=== PATIENT | male | born 1970 | race Asian ===

== ENCOUNTER 2017-12-25 23:08 | Emergency (ER) | payer OTHER ==
[~2017-12-25] VITALS: Ht 170.2 cm; Wt 77.1 kg
[2017-12-26] MEDS ORDERED: CEFUROXIME500 MG PO (01:39)
== END 2017-12-26 01:59 | disposition home or self-care (01) ==
LOC: ER 23:08
DX: S01.02XA Laceration with foreign body of scalp, initial encounter (principal); S01.521A Laceration with foreign body of lip, initial encounter; W01.0XXA Fall on same level from slipping, tripping and stumbling without subsequent striking against object, initial encounter; Y93.02 Activity, running; Y92.89 Other specified places as the place of occurrence of the external cause; Y99.8 Other external cause status

== ENCOUNTER 2018-01-02 08:52 | Emergency (ER) | payer OTHER ==
[~2018-01-02] VITALS: Ht 170.2 cm; Wt 74.8 kg
[~2018-01-02 08:52] MED LIST: CEFUROXIME500 MG PO
== END 2018-01-02 10:21 | disposition home or self-care (01) ==
LOC: ER 08:52
DX: Z48.02 Encounter for removal of sutures (principal)

== ENCOUNTER 2018-01-06 08:17 | Emergency (ER) | payer OTHER ==
[~2018-01-06] VITALS: Ht 170.2 cm; Wt 74.8 kg
== END 2018-01-06 10:10 | disposition home or self-care (01) ==
LOC: ER 08:17
DX: Z48.02 Encounter for removal of sutures (principal)